=== PATIENT | male | born 1975 | race Caucasian/White ===

== ENCOUNTER 2020-01-09 20:47 | Emergency (ER) | payer SELFPAY ==
[2020-01-09 20:49] VITALS: BP 153/95; PULSE 107; RESP 16; TEMP 36.9; O2SAT 97; BMI 26.2
--- NOTE | 2020-01-09 20:51 | PC.NURSE ---
PATIENT STATES HE HAS BEEN DRINKING A LOT OF WATER FOR A CLEANSE AND TOOK ABOUT 15 DETOX PILLS AND HASN'T EATEN SINCE 0400 IN THE MORNING. PATIENT STATES HE WAS HAVING A TALK WITH HIS DAUGHTER ABOUT HER BOYFRIEND AND HE HAD AN ANXIETY ATTACK OVER UPSETTING HIS DAUGHTER. PATIENT SEEMS VERY ANXIOUS AND UPSET IN ROOM.
--- NOTE | 2020-01-09 20:55 | PC.NURSE ---
PATIENT STATES HE FELT HIS HEART BUMP AND HIS LEFT ARM WENT NUMB AND HE WAS HAVING HEART PALPITATIONS. PATIENT STATES HIS HEART RATE WAS FAST AND FOR ABOUT TEN MINUTES IT FELT LIKE HE WAS HAVING A HEART ATTACK.
[2020-01-09 21:07] VITALS: BP 163/98; PULSE 99; RESP 16; O2SAT 95
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
[2020-01-09] MEDS: LORazepam 2 mg/mL INJ 1 mL 1.5 MG IVP (21:28)
--- NOTE | 2020-01-09 21:32 | ECG_ITS ---
Measurements Intervals [place] Rate: 100 P: 61 SC: 162 QRS: 68 QRSD: 97 T: 56 QT: 336 QTc: 433 SINUS TACHYCARDIA ABNORMAL RHYTHM ECG No previous ECG available for comparison Electronically Signed On 01-10-2020 20:20:37 POUNCER MACHINE by Octaviano Chan M.D. [email or web address]
[2020-01-09 21:56] LABS: Add Urine Microscopic? NO
[2020-01-09 22:04] LABS: Basophils # 0.1 10^3/uL (0.0-0.1); Basophils % 0.5 %; Eosinophils # 0.1 10^3/uL (0.0-0.8); Eosinophils % 0.8 %; Hematocrit 42.7 % (42.0-52.0); Hemoglobin 14.6 g/dL (11.7-16.6); Lymphocytes # 1.5 10^3/uL (0.8-4.8); Lymphocytes % 11.3 %; Mean Corpuscular HGB Conc 34.2 g/dL (30.0-36.0); Mean Corpuscular Hemoglobin 29.9 pg (28.0-34.0); Mean Corpuscular Volume 87.3 fL (80-94); Mean Platelet Volume 10.4 fL (7.4-10.4); Monocytes # 1.2 10^3/uL (0.2-0.9); Monocytes % 9.2 %; Neutrophils # 10.3 10^3/uL (1.8-7.7); Neutrophils % 77.7 %; Nucleated Red Blood Cells % 0 %; Platelet Count 318 10^3/cmm (130-400); Red Blood Count 4.89 10^6/uL (4.1-5.3); Red Cell Distribution Width 12.7 % (12.1-15.1); White Blood Count 13.2 10^3/uL (4.0-10.0)
[2020-01-09 22:05] VITALS: BP 141/90; PULSE 105; RESP 14; O2SAT 94
[2020-01-09 22:05] LABS: Alanine Aminotransferase 18 U/L (0-41); Albumin Level 4.6 g/dL (3.5-5.2); Alkaline Phosphatase 63 IU/L (40-130); Anion Gap 20.3 (5-19); Aspartate Amino Transferase 23 U/L (0-40); Blood Urea Nitrogen 9 mg/dL (6-20); Carbon Dioxide 22 mmol/L (22-29); Chloride 96 mmol/L (98-107); Creatinine Clr Calc Pharmacy 112.7109; Globulin 2.9 g/dL (1.3-4.6); Glomerular Filtration Rate 73.4 mL/min (90-130); Glucose 106 mg/dL (65-115); Potassium 3.3 mmol/L (3.5-5.1); Sodium 135 mmol/L (136-145); Total Bilirubin 0.5 mg/dL (0.15-1.2); Total Protein 7.5 g/dL (6.6-8.7)
[2020-01-09 22:06] LABS: Amphetamines Screen Urine Negative (Negative); Barbiturates Screen Urine Negative (Negative); Benzodiazepines Screen Urine Negative (Negative); Bilirubin Urine Neg (NEGATIVE); Blood Urine Neg (Negative); Cocaine Screen Urine Negative (Negative); Glucose Urine UA Norm (Normal); Ketones Urine Negative (Negative); Leukocyte Esterase Urine Negative (Negative); Nitrate Urine Negative (Negative); Opiate Screen Urine Negative (Negative); PCP Screen Urine Negative (Negative); Protein Urine Neg (Negative); Specific Gravity, Urine 1.005 (1.005-1.030); Sulfosalicylic Acid Urine Negative; THC Screen Urine Positive (Negative); Urine Appearance Clear (CLEAR); Urine Color Straw (Yellow); Urobilinogen Urine Norm (Negative); pH Urine 8 (5-7)
[2020-01-09 22:08] LABS: Troponin T (5th) Once 6 ng/mL (0-15)
[2020-01-09 22:12] LABS: Acetaminophen < 5.0 ug/mL (10-30); Alcohol Level < 10 mg/dL (0-10); Creatine Phosphokinase 322 U/L (39-308); Salicylate < 0.3 mg/dL (3-10)
--- NOTE | 2020-01-09 22:15 | PC.NURSE ---
CK 322
[2020-01-09 22:47] VITALS: BP 129/99; PULSE 115; RESP 16; O2SAT 94
[2020-01-09] MEDS: metoprolol tartrate 1 mg/1 mL SDV 5 mL 5 MG IV (22:48)
[2020-01-09 23:22] VITALS: BP 133/87; PULSE 103; RESP 12; O2SAT 97
[2020-01-09 23:25] LABS: Hepatitis A Antibody IgM. Non-Reactive (Nonreactive); Hepatitis B Core IgM Non-Reactive (Nonreactive); Hepatitis B Surface Antigen. Non-Reactive (Nonreactive); Hepatitis C Virus Antibody Non-Reactive (Nonreactive)
[2020-01-09 23:33] VITALS: BP 125/93; PULSE 96; RESP 16; O2SAT 95
[2020-01-10 00:13] LABS: HIV 1 & 2 Antibody Non-Reactive (Non-Reactiv); HIV 1 & 2 Antigen Non-Reactive (Non-Reactiv)
== END 2020-01-09 23:34 | disposition home or self-care (01) ==
PROVIDERS: Emergency Provider Emergency Medicine
DX: F41.9 Anxiety disorder, unspecified (principal); F17.200 Nicotine dependence, unspecified, uncomplicated
CPT/HCPCS: 80053; 80074; 80307; 81003; 82550; 84484; 85025; 87491; 87591; 87806; 93005; 96374; 96375; 99283; A9270; J2060; J3490

== ENCOUNTER 2022-09-06 22:00 | Emergency (ER) | payer SELFPAY ==
[2022-09-06 22:13] VITALS: BP 150/99; PULSE 97; RESP 15; TEMP 36.8; O2SAT 97; BMI 26.1
[2022-09-06] MEDS: amoxicillin-clav 875-125 mg Tablet 1 TAB PO (23:58)
[2022-09-06] MEDS: tetanus-dipt-pertussis 0.5 mL SDV IM (23:59)
--- NOTE | 2022-09-07 00:01 | W.ED.ANIMALB ---
HPI - Animal Bite General: Chief Complaint: Animal Bite Stated Complaint: dog bite Time Seen by Provider: 09/06/22 22:35 History of Present Illness: Patient reports that approximately 530 tonight he was bit by friends dog. He reports that he was visiting a friend who lived with his girlfriend and her dog bit him. He reports that the dog was barking at him and the dog was chained up and the friend advised him to go over and let the dog smell his hand that he would be fine. The patient walked over towards the dog and the dog bit him on the hand. Patient is mostly concerned about tetanus vaccination he says it has been over 7 years since his last vaccination. He did not confirm vaccination status for the dog. 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 He reports that he was advised to contact animal control and he is planning to do that tomorrow. He also has concerns about bronchitis. He has been a smoker and he has been having nasal congestion and drainage dry cough for a couple of weeks. He does use an inhaler because he has a history of asthma. He denies any fever or chills. Associated symptoms: Deny chills or fever(s) Review of Systems Const: Denies: fever(s) or chills ENMT: Reports: nasal discharge and nasal congestion Card: Denies: chest pain or palpitations Resp: Reports: non-productive cough and wheezing; Denies: dyspnea or productive cough Skin/Breast: Reports: other (Dog bite left dorsal hand) REPLACED BY [facility] ED PFSH: Social History Smoking and tobacco status: current every day smoker Physical Exam Const: COMMON NORMALS: no acute distress, patient oriented x3 and alert OTHER: Patient is very cooperative and pleasant but makes statements that seem very paranoid. Patient is talking about how much the government takes from the [employer] money daniel. He keeps making statements that the [employer] has $23 million on each person. Resp: COMMON NORMALS: normal respiratory effort and No use of accessory muscles AUSCULTATION: wheezes (Mild expiratory wheezes throughout ) throughout Extremity: NARRATIVE EXTREMITY EXAM: Left dorsal hand there is a scabbed area consistent with a bite shamika. No current bruising or bleeding at this time. Patient has full use of the hand full flexion extension. No obvious bony deformities. CSM within normal limits. Patient declined x-ray of the hand. EXTREMITY IMAGE (FRONT): 1. Semicircular scabbed wound 2. Semicircular scabbed wound Neuro: COMMON NORMALS: patient oriented x3 SENSORIUM/ORIENTATION: Yes alert Course Vital Signs: Vital signs: Vital Signs Temperature 98.2 F 09/06/22 22:13 Pulse Rate 97 09/06/22 22:13 Respiratory Rate 15 09/06/22 22:13 Blood Pressure 150/99 09/06/22 22:13 Pulse Oximetry 97 09/06/22 22:13 Oxygen Delivery Me thod 09/06/22 22:13 MDM - Animal Bite Medical Decision Making Patient is in today for a dog bite. He has not confirmed vaccination status of the dog but states that it was out at home that seemed very well kept and the people seem to be good dog owners. He is hoping that the dog is vaccinated. He does not wish to start the rabies vaccination series at this time. He wants to try and follow-up with the health department and also with animal control to confirm vaccination status of the dog. He does wish to have his tetanus updated. He is also concerned about bronchitis. I did go ahead and start the patient on Augmentin antibiotic prophylactic treatment for the dog bite. His lungs do have some expiratory wheezes noted throughout. The patient is a smoker he does use an albuterol inhaler at home we discussed conservative treatments for this at home. We discussed keeping the dog bite clean and dry. Monitoring closely for signs of developing infection. I recommend the patient follow-up with primary care as needed. Return here if he is unable to verify vaccination status of the dog because he will then need to start the rabies vaccination series. Return to the ER sooner as needed for any new or worsening symptoms. Animal bite supplemental case report completed for the [facility] and [facility] services Discharge Plan Discharge Patient Disposition: Home Clinical Impression: Bronchitis, Tobacco dependence Dog bite Qualifiers: Encounter type: initial encounter Qualified Code(s): W54.0XXA - Bitten by dog, initial encounter Condition: Stable Prescriptions: New amoxicillin-pot clavulanate 875-125 mg tablet 1 tab PO BID 7 Days Qty: 14 0RF No Action Ativan 1 mg tablet 1 mg PO TID PRN (Reason: anxiety) Qty: 7 0RF Discharge Orders: Discharge ED (Routine); Ordered 09/07/22 Ordered By: Neelam Kumar Discharge Diet: Usual diet Discharge Activity: Resume usual activity Patient Instructions: Animal Bite (ED), Acute Bronchitis (ED), Opioid Safety, Pain Management Activity Restrictions/Additional Instructions: Your tetanus was updated today. Start antibiotic prescription tomorrow your first dose was given tonight in the ER. Keep the wound clean and dry. Be sure to follow-up with the health department and animal control to verify status of the dog's rabies vaccination. If if the dog's rabies vaccination cannot be verified return to the ER for evaluation and to begin rabies vaccination series as soon as possible. Return to the ER sooner as needed. Coding Level of Care Code ED Laboratory Inspector for Deandra Fwd Exam Expanded Problem Focused
== END 2022-09-07 00:23 | disposition home or self-care (01) ==
PROVIDERS: Emergency Provider Nurse Practitioner Family
DX: S61.452A Open bite of left hand, initial encounter (principal); J40 Bronchitis, not specified as acute or chronic; F17.210 Nicotine dependence, cigarettes, uncomplicated; W54.0XXA Bitten by dog, initial encounter; Z23 Encounter for immunization
CPT/HCPCS: 90471; 90715; 99283

== ENCOUNTER 2023-02-17 14:27 | Emergency (ER) | payer SELFPAY ==
[2023-02-17 14:30] VITALS: BP 125/87; PULSE 92; RESP 18; TEMP 36.3; O2SAT 98
--- NOTE | 2023-02-17 15:22 | W.ED.NAVMDI ---
HPI - Nausea/Vomiting/Diarrhea General: Chief complaint: Nausea/Vomiting/Diarrhea Stated complaint: n/v/sweats Time Seen by Provider: 02/17/23 15:16 History of Present Illness: Patient is a 47-year-old male comes to the ED with nausea vomiting and generalized weakness. Patient says symptoms started earlier today after he walked about a mile to get to his friend's house. When he got to his friend's house he says he felt a little nauseous, weak and describes feeling a little off . He then had an episode of emesis. Denies any fevers, chest pain, shortness of breath, abdominal pain, bladder or bowel symptoms. Patient reports feeling thirsty and dehydrated. Patient does admit to using methamphetamines approximately 2 days ago. Denies any SI, HI, auditory or visual hallucinations. Associated nausea: Yes Associated symtoms: Reports fatigue, malaise and nausea; Denies change in vision, chest pain, dysuria, headache(s) or palpitations Review of Systems Const: Reports: fatigue and malaise; Denies: fever(s) or chills Eyes: Denies: change in vision or eye discomfort ENMT: Denies: throat pain, odynophagia, nasal discharge or nasal congestion Card: Denies: chest pain, palpitations, edema, swelling of feet/ankles, dyspnea on exertion or orthopnea Resp: Denies: dyspnea, productive cough or non-productive cough GI: Reports: nausea and vomiting; Denies: abdominal pain, diarrhea, constipation or hematochezia : Denies: flank pain, difficulty urinating, dysuria or hematuria Musc: Denies: neck pain, back pain or extremity swelling Skin/Breast: Denies: rash or new lesions Neuro: Denies: headache(s), numbness in extremities or weakness in extremities Psych: Denies: visual hallucinations, auditory hallucinations, suicidal ideation or homicidal ideation PFS ED PFSH: Medical History No pertinent family history Surgical History No pertinent past surgical history Social History Smoking and tobacco status: current every day smoker Physical Exam Const: COMMON NORMALS: no acute distress, patient oriented x3, healthy appearing and alert HENMT: COMMON NORMALS: normocephalic HEAD & SCALP: normocephalic MOUTH: Normal oral and palatal mucosa present THROAT: posterior oropharynx normal and uvula midline Neck/C-Spine: COMMON NORMALS: supple GENERAL: Yes normal visual inspection Resp: COMMON NORMALS: normal respiratory effort, No retractions, No use of accessory muscles and clear to auscultation bilaterally AUSCULTATION: clear to auscultation bilaterally Cardio: COMMON NORMALS: regular rate, regular rhythm, S1 normal heart sound present, S2 normal heart sound present, No gallops present (Cardio), No clicks present (Cardio), No murmurs present (Cardio) and Peripheral pulses 2+ throughout RATE: regular rate RHYTHM: regular rhythm HEART SOUNDS: S1 normal heart sound present and S2 normal heart sound present PERIPHERAL PULSES: Peripheral pulses 2+ throughout GI: COMMON NORMALS: Normal to inspection, nondistended, normoactive bowel sounds present, Soft to palpation, non-tender and no masses PALPATION: Yes Soft to palpation : COMMON NORMALS: Yes no CVA tenderness BLADDER/KIDNEY EXAM: Yes no CVA tenderness Back/Pelvis: COMMON NORMALS: no CVA tenderness Extremity: COMMON NORMALS: normal to inspection Neuro: COMMON NORMALS: patient oriented x3 SENSORIUM/ORIENTATION: Yes alert GAIT: Yes Normal gait present Skin: GENERAL SKIN EXAM: dry skin Course Vital Signs: Vital signs: Vital Signs Temperature 97.4 F L 02/17/23 14:30 Pulse Rate 92 02/17/23 14:30 Respiratory Rate 20 H 02/17/23 17:02 Blood Pressure 125/87 02/17/23 14:30 Pulse Oximetry 98 02/17/23 14:30 Oxygen Delivery Me thod 02/17/23 14:30 MDM - Nausea/Vomiting/Diarrhea Medical Decision Making Patient is a 47-year-old male comes to the ED with nausea vomiting and generalized weakness. Patient says symptoms started earlier today after he walked about a mile to get to his friend's house. When he got to his friend's house he says he felt a little nauseous, weak and describes feeling a little off . He then had an episode of emesis. Denies any fevers, chest pain, shortness of breath, abdominal pain, bladder or bowel symptoms. Patient reports feeling thirsty and dehydrated. Patient does admit to using methamphetamines approximately 2 days ago. Denies any SI, HI, auditory or visual hallucinations. Vitals are stable. Exam of patient is benign he appears nontoxic in no acute distress or pain. Labs are all unremarkable. Patient was given IV fluids and some Zofran and symptoms improved. I think his symptoms of fatigue are likely due to coming down from recent meth use. He was stable for discharge home and told to follow-up with his PCP in the next week for reevaluation. Return to ED precautions given. Patient understood and agreed with plan. Lab Data I reviewed the patient's lab results. 02/17/23 15:15 02/17/23 15:15 Laboratory Results WBC 13.9 10^3/uL (4.0-10.0) H 02/17/23 15:15 RBC 4.33 10^6/uL (4.1-5.3) 02/17/23 15:15 Hgb 13.2 g/dL (11.7-16.6) 02/17/23 15:15 Hct 40.6 % (42.0-52.0) L 02/17/23 15:15 MCV 93.8 fl (80-94) 02/17/23 15:15 MCH 30.5 pg (28.0-34.0) 02/17/23 15:15 MCHC 32.5 g/dL (30.0-36.0) 02/17/23 15:15 RDW 13.6 % (12.1-15.1) 02/17/23 15:15 Plt Count 400 10^3/cmm (130-400) 02/17/23 15:15 MPV 9.4 fL (7.4-10.4) 02/17/23 15:15 Neut % (Auto) 79.9 % 02/17/23 15:15 Lymph % (Auto) 8.3 % 02/17/23 15:15 [place] % (Auto) 7.0 % 02/17/23 15:15 Eos % (Auto) 3.6 % 02/17/23 15:15 Baso % (Auto) 0.9 % 02/17/23 15:15 Neut # (Auto) 11.12 10^3/uL (1.8-7.7) H 02/17/23 15:15 Lymph # (Auto) 1.2 10^3/uL (0.8-4.8) 02/17/23 15:15 [place]ord # (Auto) 1.0 10^3/uL (0.2-0.9) H 02/17/23 15:15 Eos # (Auto) 0.5 10^3/uL (0.0-0.8) 02/17/23 15:15 Baso # (Auto) 0.1 10^3/uL (0.0-0.1) 02/17/23 15:15 Nucleated RBC % (auto) 0 % 02/17/23 15:15 Nucleated RBCs # 0.0 /100WBC 02/17/23 15:15 Sodium 143 mmol/L (136-145) 02/17/23 15:15 Potassium 3.8 mmol/L (3.5-5.1) 02/17/23 15:15 Chloride 106 mmol/L (98-107) 02/17/23 15:15 Carbon Dioxide 26 mmol/L (22-29) 02/17/23 15:15 Anion Gap 14.8 (5-19) 02/17/23 15:15 BUN 11 mg/dL (6-20) 02/17/23 15:15 Creatinine 1.0 mg/dL (0.7-1.2) 02/17/23 15:15 GFR Calculation 80.8 mL/min (90-130) L 02/17/23 15:15 Glucose 120 mg/dL (65-115) H 02/17/23 15:15 Calculated Osmolality 297 mOsm/kg (285-295) H 02/17/23 15:15 Calcium 9.3 mg/dL (8.5-10.5) 02/17/23 15:15 Total Bilirubin 0.3 mg/dL (0.15-1.2) 02/17/23 15:15 AST 15 U/L (0-40) 02/17/23 15:15 ALT 17 U/L (0-41) 02/17/23 15:15 Alkaline Phosphatase 52 U/L (40-130) 02/17/23 15:15 Total Protein 6.8 g/dL (6.6-8.7) 02/17/23 15:15 Albumin 3.9 g/dL (3.5-5.2) 02/17/23 15:15 Globulin 2.9 g/dL (1.3-4.6) 02/17/23 15:15 Lipase 23 U/L (13-60) 02/17/23 15:15 Discharge Plan Discharge Patient Disposition: Home Clinical Impression: Fatigue Qualifiers: Fatigue type: other Qualified Code(s): R53.83 - Other fatigue Condition: Stable Prescriptions: New ondansetron 4 mg tablet,disintegrating 4 mg PO Q8H PRN (Reason: nausea and vomiting) Qty: 15 0RF No Action Ativan 1 mg tablet 1 mg PO TID PRN (Reason: anxiety) Qty: 7 0RF Discharge Orders: Discharge ED (Routine); Ordered 02/17/23 Ordered By: Andrew Malcolm Referrals: Zenaida Martinez MD [Primary Care Provider] - Discharge Diet: Regular Discharge Activity: Increase activity as tolerated Patient Instructions: Methamphetamine Abuse, Fatigue (ED) Activity Restrictions/Additional Instructions: Follow-up with medical provider as directed in the next 5 to 7 days for reevaluation. Take medications as prescribed. Patient to drink plenty of fluids and stay hydrated. Return to the ER or your medical provider if condition worsens. Please read and understand discharge instructions. Thank you for choosing [facility] for your healthcare needs today. Please realize this is an emergency room and that we are providing you with a medical screening exam and this may not be complete and all inclusive of all the testing and or work up that you may need to determine your ailment or severity of your illness. It is very important that you follow up as instructed or that you return to the Emergency Department should you have concerns or if your condition changes or worsens in any way. Coding Level of Care Code ED Dietary Services Director for Deandra Pierre
[2023-02-17 15:30] LABS: Basophils # 0.1 10^3/uL (0.0-0.1); Basophils % 0.9 %; Eosinophils # 0.5 10^3/uL (0.0-0.8); Eosinophils % 3.6 %; Hematocrit 40.6 % (42.0-52.0); Hemoglobin 13.2 g/dL (11.7-16.6); Lymphocytes # 1.2 10^3/uL (0.8-4.8); Lymphocytes % 8.3 %; Mean Corpuscular HGB Conc 32.5 g/dL (30.0-36.0); Mean Corpuscular Hemoglobin 30.5 pg (28.0-34.0); Mean Corpuscular Volume 93.8 fl (80-94); Mean Platelet Volume 9.4 fL (7.4-10.4); Neutrophils # 11.12 10^3/uL (1.8-7.7); Neutrophils % 79.9 %; Nucleated Red Blood Cells % 0 %; Platelet Count 400 10^3/cmm (130-400); Red Blood Count 4.33 10^6/uL (4.1-5.3); Red Cell Distribution Width 13.6 % (12.1-15.1); White Blood Count 13.9 10^3/uL (4.0-10.0)
[2023-02-17] MEDS: sodium chloride 0.9% 1,000 ML 999 ML IV (15:36)
[2023-02-17] MEDS: ondansetron 2 mg/ML SDV 2 mL 4 MG IVP (15:36)
--- NOTE | 2023-02-17 15:39 | PC.NURSE ---
PT informed staff nurse that he uses marijuana but not ice in two days . He states that this could be why he is dehydrated.
[2023-02-17 15:56] LABS: Alanine Aminotransferase 17 U/L (0-41); Albumin Level 3.9 g/dL (3.5-5.2); Alkaline Phosphatase 52 U/L (40-130); Anion Gap 14.8 (5-19); Aspartate Amino Transferase 15 U/L (0-40); Blood Urea Nitrogen 11 mg/dL (6-20); Calcium 9.3 mg/dL (8.5-10.5); Carbon Dioxide 26 mmol/L (22-29); Chloride 106 mmol/L (98-107); Globulin 2.9 g/dL (1.3-4.6); Glomerular Filtration Rate 80.8 mL/min (90-130); Glucose 120 mg/dL (65-115); Lipase 23 U/L (13-60); Osmolality Calculated 297 mOsm/kg (285-295); Potassium 3.8 mmol/L (3.5-5.1); Sodium 143 mmol/L (136-145); Total Bilirubin 0.3 mg/dL (0.15-1.2); Total Protein 6.8 g/dL (6.6-8.7)
[2023-02-17 17:02] VITALS: RESP 20
== END 2023-02-17 17:03 | disposition home or self-care (01) ==
PROVIDERS: Family Medicine; Emergency Provider Physician Assistant; PCP Family Medicine
DX: R53.83 Other fatigue (principal)
CPT/HCPCS: 36415; 80053; 83690; 85025; 96361; 96374; 99284; J2405; J7030